=== PATIENT | male | born 1935 | race Caucasian/White ===

== ENCOUNTER → 2017-06-21 | Outpatient (CLI) | payer OTHER, MEDICARE ==
[~2017-06-21] MED LIST: ALEVE220 M1 PO; ALLEGRA ALLERG180 MG PO; ASPIR 8181 MG PO; ATIVAN1 MG PO; AZOR 5-40 MG T1 EACH PO; HYDROCHLOROTHIA25 M2 PO; METOPROLOL SUCC50 MG PO; PINDOLOL10 MG PO; PINDOLOL5 MG PO; PREDNISONE 20 M20 MG PO; PRILOSEC20 MG PO; TRAVATAN Z5 ML OP
== END ==
LOC: RAD 09:21
DX: M25.562 Pain in left knee (principal); M25.561 Pain in right knee

== ENCOUNTER → 2017-07-05 | Outpatient (CLI) | payer OTHER, MEDICARE | LOC: ULTRA 14:13 | DX: M71.22 Synovial cyst of popliteal space [Baker], left knee (principal); M25.462 Effusion, left knee; R60.0 Localized edema ==

== ENCOUNTER → 2017-08-03 | Outpatient (CLI) | payer OTHER, MEDICARE ==
[~2017-08-03] VITALS: Ht 182.9 cm; Wt 99.8 kg
[~2017-08-03] MED LIST changes: +ALEVE220 MG PO; +ALPHAGAN P5 ML OPHTHALMIC; +AVAPRO300 MG PO; +ELIQUIS2.5 MG PO; +METAMUCIL1 EAC1 PO; +METOPROLOL SUCC25 M1 PO; +NITRO-DUR 0.1M0.1 M1 TOP; +NORVASC5 M1 PO; +PRILOSEC 20 MG20 MG PO; -PRILOSEC20 MG PO; +PROTONIX40 M1 PO; +QUALAQUIN324 MG PO; +RANEXA500 MG PO; +SIMBRINZA 1%-0.28 ML INTRAOCULR; +TOPROL XL25 MG PO
--- NOTE | ~2017-08-03 | CATHLAB ---
[facility] [address] [place] [address] INVASIVE PROCEDURE REPORT Name: GIBRANRUBI NATHAN Room #: REG [facility]#: [id number] Admission: 08/03/17 Attend Phys: Bethel Small MD Discharge: Date of : 34 Date of Service: 08/03/17 1614 Report #: [id number] THIS REPORT FOR: //name// ADDENDUM APPROVED REPORT Patient Details Patient Status: Out-Patient Room #: The patient is a 82 year-old male Event Personnel Bethel Small Bill Distributor, Ruby Montgomery, Zeenat Hudson Penny, Wes RN Procedures Performed Art Access - R femoral artery* 50271 Initial Mod Sed Same Phys/QHP Gr5y 384791 67932 Mod Sed Same Phys/QHP Ea 413951 Coronaries Angiography and Bypass Grafts 948586 CORCABG Hemostasis with Manual pressure Indication Atrial fibrillation, Dyspnea, Chest pain Risk Factors Peripheral Vascular Disease, Hypercholesterolemia, Coronary Artery DiseaseHypertensionRenal Failure Previous Procedures/Diagnoses Previous CABG Procedure Narrative The patient was brought electively to the Cardiac Catheterization Laboratory and was prepped and draped in a sterile manner. The Right Groin^ was infiltrated with 1% Lidocaine subcutaneous anesthesia. A PINNACLE 4FR Sheath #[id number] sheath was inserted into the RFA^. Coronary angiography was performed using coronary diagnostic catheters. The right coronary system was accessed and visualized with a JR 4 catheter. The left coronary system was accessed and visualized with a JL 4 catheter. Hemostasis was obtained with manual pressure following sheath removal without any complications. The patient tolerated the procedure well and there were no complications associated with the procedure. There was no hematoma. Intraoperative Conscious Sedation Sedation start time: 12:41 Case end Time: 13:[address] [address] INVASIVE PROCEDURE REPORT Name: RUBI LEARY Room #: REG [facility]#: [id number] Admission: 08/03/17 Attend Phys: Bethel Small MD Discharge: Date of : 34 Date of Service: 08/03/17 1614 Report #: [id number] Fentanyl 50.0 mcg Versed 1.5 mg Fluoro Time: 10.06 minutes Dose: DAP 24493.90 cGycm2 1121 mGy Contrast Type and Amount: Visipaque 100 ml Coronary Angiography The patient's coronary anatomy is right dominant. [place] Artery Percent Stenosis Left Main: 100 % Prox LAD: % Mid/Distal LAD: % Circumflex: % RCA: 100 % Ramus: % Diagnostic Cath LAD There is a patent BOOGIE graft with an end to side anastomosis to the mid LAD. There are no flow-limiting lesions within the graft or LAD after the anastomosis. Diagonal 1 There is a patent sequential SVG with a cgll-yl-tmiq anastomosis to the first diagonal artery and end-to-side anastomosis to the first obtuse marginal artery. There are no flow-limiting lesions. R PDA There is a saphenous vein graft with an end to side anastomosis to the PDA. At the distal anastomotic site, there appears to be a 50-70% stenosis in the PDA. Recommend medical therapy. RPLV The RPL branch is filled via collateral circulation from the left circumflex artery. Left Ventriculography Left Ventriculography was not performed. Hemodynamics The aortic pressure is 119/73 mmHg with a mean of 85 mmHg. Conclusion 1. Occluded left main and RCA. 2. Patent BOOGIE to the mid LAD. 3. Patent sequential SVG to the first diagonal artery and the first obtuse marginal artery. 4. 50-70% stenosis at the distal anastomotic site of the SVG to the PDA. Recommend medical therapy. Consider staged angioplasty if symptoms persist. [facility] [address] [place] [address] INVASIVE PROCEDURE REPORT Name: RUBI LEARY Room #: REG CL [facility]#: [id number] Admission: 08/03/17 Attend Phys: Bethel Small MD Discharge: Date of : 34 Date of Service: 08/03/17 1614 Report #: [id number] 5. The RPL branch is filled via collateral circulation from the left circumflex artery. <ELECTRONICALLY SIGNED> By: Bethel Small MD 08/03/17 1614 1614 1614 Bethel Small MD /INF
--- NOTE | ~2017-08-03 | EKG ---
[address] [address] ELECTROCARDIOGRAM REPORT Name: RUBI LEARY [id number] Admission: 08/03/17 Attend Phys: Bethel Small MD Discharge: Date of : 34 Report #: [id number] THIS REPORT FOR: //name// [facility] Test Date: 2017-08-03 Test Time: 09:56:44 Pat Name: RUBI LEARY Department: Room: Gender: Recreation Facility Manager: Ryan VAN : 1935 Requested By: Bethel Small Order Number: [id number] MD: Rene Moy Measurements Intervals [place] Rate: 66 P: GA: QRS: -73 QRSD: 153 T: 94 QT: 430 QTc: 451 Interpretive Statements Atrial fibrillation Nonspecific IVCD with LAD Compared to ECG 10/09/2013 09:02:22 Electronically Signed On 08-03-2017 11:26:54 TITLE ABSTRACTOR by Rene Moy [email or web address] <ELECTRONICALLY SIGNED> By: Rene Moy MD 08/03/17 1126 0956 09 Rene Moy MD /SAE
[2017-08-03 10:07] VITALS: BP 111/72
[2017-08-03 10:18] LABS: HEMATOCRIT 36.7 % (42.0-52.0); HEMOGLOBIN 12.6 gm/dL (14.0-18.0); MCH 30.2 pg (26.0-34.0); MCHC 34.4 g/dL (28.0-37.0); MCV 87.7 fL (80.0-100.0); RBC 4.19 mil/uL (4.50-6.00); RDW 14.6 % (10.5-14.5); WBC 9.5 thou/uL (4.0-11.0)
[2017-08-03 10:26] LABS: CALCIUM 9.2 mg/dL (8.5-10.1); CREATININE 1.9 mg/dL (0.7-1.3); POTASSIUM 4.1 mmol/L (3.5-5.1)
== END ==
LOC: CATH 09:30
PROVIDERS: Internal Medicine Cardiovascular Disease
DX: I25.10 Atherosclerotic heart disease of native coronary artery without angina pectoris (principal); I11.0 Hypertensive heart disease with heart failure; I25.2 Old myocardial infarction; E78.00 Pure hypercholesterolemia, unspecified; K21.9 Gastro-esophageal reflux disease without esophagitis; Z87.891 Personal history of nicotine dependence; Z95.5 Presence of coronary angioplasty implant and graft; Z90.49 Acquired absence of other specified parts of digestive tract; Z95.0 Presence of cardiac pacemaker; Z98.890 Other specified postprocedural states; Z79.899 Other long term (current) drug therapy; Z79.82 Long term (current) use of aspirin; Z91.041 Radiographic dye allergy status

== ENCOUNTER 2018-01-30 07:34 | Inpatient (IN) | payer OTHER, MEDICARE ==
[~2018-01-30] VITALS: Ht 182.9 cm; Wt 97.1 kg
--- NOTE | ~2018-01-30 | P ---
[facility] [place] [address] [place] [address] PROCEDURE REPORT Name: MELANYJASONRUBI VENITA Room #: 201-P [facility] IN M.R.#: [id number] Admission: 01/30/18 Attend Phys: Chin Lopez MD Discharge: 01/31/18 Date of : 34 Report #: [id number] THIS REPORT FOR: //name// CC: Chin Mckenzie MD DATE OF SERVICE: 01/30/2018 PROCEDURE PERFORMED: Upper endoscopy. HISTORY OF PRESENT ILLNESS: The patient is an 82-year-old male with recent dark stools. He has been on Eliquis, Aleve and aspirin on a daily basis for history of atrial fibrillation, coronary artery disease and previous CABG. He also has gastroesophageal reflux disease, takes omeprazole 20 b.i.d. and has been complaining of dysphagia for the last few weeks as well. Hemoglobin is 10.6. Plan is for EGD. DESCRIPTION OF PROCEDURE: The risks and benefits of the procedure were explained to the patient, those risks including but not limited to bleeding, perforation, the risk of sedation. He understood these risks and gave informed consent. Sedation was given using propofol per Anesthesia. Next, using a standard Olympus upper endoscope, the scope was placed in the patient's mouth and advanced under direct vision through the esophagus, stomach and into the second portion of the duodenum. The larynx was normal in appearance. The upper esophagus was normal; however, in the mid esophagus there were several linear ulcerations, none of which were bleeding. There was also just distal to the ulcerations extrinsic compression. This may be secondary from the aorta or vertebra. This may be causing a pill esophagitis in this area. I was able to pass the scope through this area. I was not able to dilate today, however, due to his recent anticoagulation medications. His distal esophagus was normal. No evidence of esophagitis at the GE junction. Overall, the gastric mucosa was normal in the fundus and body; however, in the antrum, there was a moderate gastritis. No evidence of bleeding, no ulcerations. The pylorus was normal and patent. The duodenal bulb and first portion were normal. In the second portion, a single small 2 mm nonbleeding AVM was noted. I was not able to cauterize this today because of his recent Eliquis and aspirin again. Again, there was no evidence of active bleeding throughout the exam today. At this point, the scope was then withdrawn and the procedure terminated. The patient tolerated the procedure well. IMPRESSION: 1. Linear ulcerations in the mid esophagus, this may be secondary to pill-induced esophagitis as there was external compression in this area. 2. Gastritis. [facility] [address] [place] [address] PROCEDURE REPORT Name: RUBI LEARY Room #: 201-P DIS IN M.R.#: [id number] Admission: 01/30/18 Attend Phys: Chin Lopez MD Discharge: 01/31/18 Date of : 34 Report #: [id number] 3. 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 No evidence of bleeding throughout the exam today. RECOMMENDATIONS: 1. Continue to hold anticoagulation therapy as well as NSAIDs. 2. Continue to monitor hemoglobin closely. 3. Continue PPI therapy. 4. We will add liquid Carafate at this time. 5. We will likely proceed with an upper GI barium swallow to see if there is any obvious compression in the mid esophagus with swallowing. Thank you for allowing me to participate in his care. <ELECTRONICALLY SIGNED> By: Torsten Gonsales MD 02/02/18 0830 1411 1855 Torsten Gonsales MD /nt
[~2018-01-30 07:34] MED LIST changes: -METOPROLOL SUCC25 M1 PO; -PROTONIX40 M1 PO
[2018-01-30 07:38] VITALS: BP 123/57
[2018-01-30 08:09] LABS: BASOPHILS 1.3 % (0.0-2.0); EOSINOPHILS 5.9 % (0.0-3.0); HEMATOCRIT 30.2 % (42.0-52.0); HEMOGLOBIN 10.6 gm/dL (14.0-18.0); LYMPHOCYTES 10.7 % (24.0-44.0); MCH 29.4 pg (26.0-34.0); MCHC 35.1 g/dL (28.0-37.0); MCV 83.7 fL (80.0-100.0); MONOCYTES 11.7 % (1.0-8.0); PLATELET COUNT 207 thou/uL (150-400); POLYS 70.4 % (36.0-66.0); RBC 3.61 mil/uL (4.50-6.00); RDW 15.1 % (10.5-14.5); WBC 8.5 thou/uL (4.0-11.0)
[2018-01-30 08:17] LABS: CALCIUM 8.5 mg/dL (8.5-10.1); CREATININE 2.3 mg/dL (0.7-1.3)
[2018-01-30 08:24] LABS: ALBUMIN 3.6 g/dL (3.4-5.0); DIRECT BILIRUBIN 0.1 mg/dL (<0.1-0.3); TOTAL BILIRUBIN 0.6 mg/dL (<0.1-1.0)
[2018-01-30 09:33] LABS: URINE BILIRUBIN NEGATIVE (Negative); URINE BLOOD NEGATIVE (Negative); URINE CLARITY CLEAR; URINE COLOR YELLOW; URINE GLUCOSE-RANDOM* NEGATIVE (Negative); URINE KETONES NEGATIVE (Negative); URINE LEUKOCYTES NEGATIVE (Negative); URINE NITRITE NEGATIVE (Negative); URINE PROTEIN (DIPSTICK) NEGATIVE (Negative); URINE UROBILINOGEN 0.2 E.U./dl (0.2-1.0)
[2018-01-30 10:45] VITALS: BP 123/57
[2018-01-30 10:58] VITALS: BP 123/57
[2018-01-30 11:16] VITALS: BP 141/74
[2018-01-30 15:24] VITALS: BP 139/70
[2018-01-30 19:08] VITALS: BP 144/63
[2018-01-31 04:08] LABS: ABSOLUTE NEUTROPHILS 5.5 thou/uL (1.4-8.2); BASOPHILS 0.9 % (0.0-2.0); EOSINOPHILS 5.5 % (0.0-3.0); HEMATOCRIT 28.6 % (42.0-52.0); HEMOGLOBIN 10.1 gm/dL (14.0-18.0); LYMPHOCYTES 13.9 % (24.0-44.0); MCHC 35.2 g/dL (28.0-37.0); MCV 82.5 fL (80.0-100.0); MONOCYTES 10.5 % (1.0-8.0); PLATELET COUNT 195 thou/uL (150-400); POLYS 69.2 % (36.0-66.0); RBC 3.46 mil/uL (4.50-6.00); RDW 15.1 % (10.5-14.5)
[2018-01-31 04:23] VITALS: BP 135/61
[2018-01-31 04:23] LABS: CALCIUM 8.2 mg/dL (8.5-10.1); CREATININE 1.7 mg/dL (0.7-1.3); MAGNESIUM 2.1 mg/dL (1.8-2.4)
[2018-01-31 07:15] VITALS: BP 124/74
[2018-01-31 11:08] VITALS: BP 142/61
[2018-01-31] MEDS ORDERED: RANEXA500 MG PO (14:08)
[2018-01-31] MEDS ORDERED: METOPROLOL SUCC25 M1 PO (14:08)
[2018-01-31] MEDS ORDERED: ASPIR 8181 MG PO (14:09)
[2018-01-31] MEDS ORDERED: PROTONIX40 M1 PO (14:10)
[2018-01-31 14:20] VITALS: BP 142/61
[2018-02-01 09:53] LABS: GLYCOHEMOGLOBIN (HGB A1C) 5.7 % (4.8-5.6)
== END 2018-01-31 15:15 | disposition home or self-care (01) | DRG 377 ==
LOC: ER 07:34 → EROBS 08:14 → 2N 08:14
PROVIDERS: Emergency Medicine; Nurse Practitioner
PROC: 0DJ08ZZ Inspection of Upper Intestinal Tract, Via Natural or Artificial Opening Endoscopic (ICD-10-PCS; principal; 2018-01-30)
DX: K92.2 Gastrointestinal hemorrhage, unspecified (principal); N17.0 Acute kidney failure with tubular necrosis; I48.92 Unspecified atrial flutter; K22.10 Ulcer of esophagus without bleeding; I12.9 Hypertensive chronic kidney disease with stage 1 through stage 4 chronic kidney disease, or unspecified chronic kidney disease; Z66 Do not resuscitate; K57.90 Diverticulosis of intestine, part unspecified, without perforation or abscess without bleeding; I25.10 Atherosclerotic heart disease of native coronary artery without angina pectoris; I48.91 Unspecified atrial fibrillation; K21.0 Gastro-esophageal reflux disease with esophagitis; K29.70 Gastritis, unspecified, without bleeding; K55.20 Angiodysplasia of colon without hemorrhage; M19.90 Unspecified osteoarthritis, unspecified site; N18.9 Chronic kidney disease, unspecified; E78.5 Hyperlipidemia, unspecified; Z95.1 Presence of aortocoronary bypass graft; Z87.891 Personal history of nicotine dependence; Z90.49 Acquired absence of other specified parts of digestive tract; Z79.01 Long term (current) use of anticoagulants; Z79.82 Long term (current) use of aspirin; Z79.899 Other long term (current) drug therapy; Z88.8 Allergy status to other drugs, medicaments and biological substances; Z91.041 Radiographic dye allergy status
CPT/HCPCS: 10081; 62110; 62900; 70005

== ENCOUNTER → 2018-02-08 | Outpatient (CLI) | payer OTHER, MEDICARE ==
[~2018-02-08] MED LIST changes: +METOPROLOL SUCC25 M1 PO; +PROTONIX40 M1 PO
== END ==
LOC: RAD 08:31
DX: K20.9 Esophagitis, unspecified (principal); K92.2 Gastrointestinal hemorrhage, unspecified

== ENCOUNTER → 2018-03-26 | Outpatient (CLI) | payer OTHER, MEDICARE | LOC: RAD 11:02 | DX: I51.7 Cardiomegaly (principal); I25.10 Atherosclerotic heart disease of native coronary artery without angina pectoris; J98.4 Other disorders of lung; J98.11 Atelectasis ==

== ENCOUNTER 2018-09-22 11:13 | Emergency (ER) | payer OTHER, MEDICARE ==
[~2018-09-22] VITALS: Ht 188 cm; Wt 90.7 kg
[2018-09-22 12:30] LABS: CREATININE 1.6 mg/dL (0.7-1.3); HEMATOCRIT 35.4 % (42.0-52.0); HEMOGLOBIN 11.6 gm/dL (14.0-18.0); MCH 25.3 pg (26.0-34.0); MCHC 32.6 g/dL (28.0-37.0); MCV 77.7 fL (80.0-100.0); PLATELET COUNT 192 thou/uL (150-400); POTASSIUM 3.2 mmol/L (3.5-5.1); RBC 4.56 mil/uL (4.50-6.00); RDW 18.2 % (10.5-14.5)
[2018-09-22 12:35] LABS: ALBUMIN 3.4 g/dL (3.4-5.0); DIRECT BILIRUBIN 0.2 mg/dL (<0.1-0.3); TOTAL BILIRUBIN 0.9 mg/dL (<0.1-1.0); TOTAL PROTEIN 6.8 g/dL (6.4-8.2)
--- NOTE | 2018-09-22 12:55 | EKG ---
[place] [address] [address] [place] [address] ELECTROCARDIOGRAM REPORT Name: RUBI LEARY [facility] #: [facility] [id number] ������������������ Admission: 09/22/18 ������������������ Attend Phys: Discharge: ������������������ Date of : 34 Report #: [id number] ����������������������������������������������������������������� [id number] THIS REPORT FOR: //name// [facility] Test Date: 2018-09-22 Test Time: 11:41:26 Pat Name: RUBI LEARY Department: Room: Gender: M Polyethylene Combiner: TIFFANIE : 1935 Requested By: Earnest Butcher Order Number: [id number] MD: Getachew Kingston Measurements Intervals [place] Rate: 61 P: NM: QRS: -75 QRSD: 157 T: 88 QT: 441 QTc: 445 Interpretive Statements Atrial fibrillation Leftward axis Nonspecific intraventricular conduction delay Possible inferior infarct, old Compared to ECG 08/03/2017 09:56:44 No significant change was found Electronically Signed On 09-22-2018 12:55:17 MECHANICAL SHOVEL OPERATOR by Getachew Kingston [email or web address] ��������������������������������������������� <ELECTRONICALLY SIGNED> ���������������������������������������� By: Getachew Kingston MD, [facility] ��������������������������������������������� 09/22/18 1255 1141 1141 Getachew Kingston MD, FACC /EPI
[2018-09-22 13:02] LABS: ABSOLUTE NEUTROPHILS 6.3 thou/uL (1.4-8.2)
[2018-09-22 13:03] LABS: ANISOCYTOSIS 2+; OVALOCYTES 1+
[2018-09-22 13:30] LABS: URINE BILIRUBIN NEGATIVE (Negative); URINE BLOOD NEGATIVE (Negative); URINE CLARITY CLEAR; URINE COLOR YELLOW; URINE GLUCOSE-RANDOM* NEGATIVE (Negative); URINE KETONES NEGATIVE (Negative); URINE LEUKOCYTES-REFLEX NEGATIVE (Negative); URINE NITRITE-REFLEX NEGATIVE (Negative); URINE PROTEIN (DIPSTICK) TRACE (Negative); URINE SPECIFIC GRAVITY 1.025 (1.005-1.035); URINE UROBILINOGEN 0.2 E.U./dl (0.2-1.0)
[2018-09-22 13:39] VITALS: BP 139/78
[2018-09-22] MEDS ORDERED: NORFLEX100 MG PO (13:41)
== END 2018-09-22 14:10 | disposition home or self-care (01) ==
LOC: ER 11:13
PROVIDERS: Emergency Medicine
DX: S39.012A Strain of muscle, fascia and tendon of lower back, initial encounter (principal); M54.2 Cervicalgia; E87.6 Hypokalemia; K21.9 Gastro-esophageal reflux disease without esophagitis; I10 Essential (primary) hypertension; I25.10 Atherosclerotic heart disease of native coronary artery without angina pectoris; I48.91 Unspecified atrial fibrillation; Z87.891 Personal history of nicotine dependence; Z91.041 Radiographic dye allergy status; Z88.8 Allergy status to other drugs, medicaments and biological substances; Z90.89 Acquired absence of other organs; Z90.49 Acquired absence of other specified parts of digestive tract; Z98.890 Other specified postprocedural states; X50.1XXA Overexertion from prolonged static or awkward postures, initial encounter; Y92.89 Other specified places as the place of occurrence of the external cause; Y93.89 Activity, other specified; Y99.8 Other external cause status

== ENCOUNTER → 2019-05-17 | Outpatient (CLI) | payer OTHER, MEDICARE ==
[~2019-05-17] MED LIST changes: +MICROZIDE12.5 MG PO; +NEURONTIN 300M300 M2 PO; +NORFLEX100 MG PO; +OMEPRAZOLE 20 M20 M1 PO
== END ==
LOC: HYPER 05:48
DX: M79.89 Other specified soft tissue disorders (principal); I89.0 Lymphedema, not elsewhere classified; R60.0 Localized edema; E11.22 Type 2 diabetes mellitus with diabetic chronic kidney disease; I12.9 Hypertensive chronic kidney disease with stage 1 through stage 4 chronic kidney disease, or unspecified chronic kidney disease; N18.2 Chronic kidney disease, stage 2 (mild); E11.42 Type 2 diabetes mellitus with diabetic polyneuropathy; E11.51 Type 2 diabetes mellitus with diabetic peripheral angiopathy without gangrene; E11.21 Type 2 diabetes mellitus with diabetic nephropathy; E78.00 Pure hypercholesterolemia, unspecified; G90.09 Other idiopathic peripheral autonomic neuropathy; I73.00 Raynaud's syndrome without gangrene; I48.20 Chronic atrial fibrillation, unspecified; Z87.891 Personal history of nicotine dependence; Z95.1 Presence of aortocoronary bypass graft; Z90.49 Acquired absence of other specified parts of digestive tract

== ENCOUNTER → 2019-05-30 | Outpatient (CLI) | payer OTHER, MEDICARE | LOC: HYPER 03:57 | DX: M79.661 Pain in right lower leg (principal); E11.22 Type 2 diabetes mellitus with diabetic chronic kidney disease; I12.9 Hypertensive chronic kidney disease with stage 1 through stage 4 chronic kidney disease, or unspecified chronic kidney disease; N18.2 Chronic kidney disease, stage 2 (mild); E11.21 Type 2 diabetes mellitus with diabetic nephropathy; E78.00 Pure hypercholesterolemia, unspecified; E11.42 Type 2 diabetes mellitus with diabetic polyneuropathy; I73.89 Other specified peripheral vascular diseases; I73.00 Raynaud's syndrome without gangrene; I48.20 Chronic atrial fibrillation, unspecified; I89.0 Lymphedema, not elsewhere classified; G90.09 Other idiopathic peripheral autonomic neuropathy; R60.0 Localized edema; Z87.891 Personal history of nicotine dependence ==

== ENCOUNTER → 2019-06-10 | Outpatient (CLI) | payer OTHER, MEDICARE ==
[~2019-06-10] VITALS: Ht 182.9 cm; Wt 87.1 kg
[2019-06-10 07:25] VITALS: BP 131/68
[2019-06-10 07:38] LABS: HEMATOCRIT 33.2 % (42.0-52.0); HEMOGLOBIN 10.2 gm/dL (14.0-18.0); MCHC 30.8 g/dL (28.0-37.0); MCV 84.6 fL (80.0-100.0); RBC 3.92 mil/uL (4.50-6.00); RDW 19.4 % (10.5-14.5); WBC 9.1 thou/uL (4.0-11.0)
[2019-06-10 07:46] LABS: CALCIUM 9.3 mg/dL (8.5-10.1); CREATININE 2.1 mg/dL (0.7-1.3); POTASSIUM 3.9 mmol/L (3.5-5.1)
--- NOTE | 2019-06-10 14:23 | CATHLAB ---
[facility] [address] [place] [address] INVASIVE PROCEDURE REPORT Name: GIBRANRUBI NATHAN Room #: REG [facility]#: [id number] Admission: 06/10/19 Attend Phys: Bethel Small MD Discharge: Date of : 34 Report #: [id number] THIS REPORT FOR: //name// APPROVED REPORT Study performed: 06/10/2019 10:47:55 Patient Details Patient Status: Out-Patient Room #: The patient is a 84 year-old male Event Personnel Bethel Small Pool Lifeguard, Jo Cain RN, Gosia Schroeder RN RN, Ruby Montgomery, Charleen Moore RTR Scrub, Bobby Quan RTR Scrub Procedures Performed Art Access - R femoral artery* Art Access - L radial artery 15679 Initial Mod Sed Same Phys/QHP Gr5y 155333 41665 Mod Sed Same Phys/QHP Ea 545099 Coronaries Angiography and Bypass Grafts 741853 CORCABG Hemostasis with Manual pressure Indication Dyspnea, Positive stress test Risk Factors Hypercholesterolemia, Coronary Artery DiseaseHypertension, Last Creatanine Previous Procedures/Diagnoses Previous CABG Procedure Narrative The patient was brought electively to the Cardiac Catheterization Laboratory and was prepped and draped in a sterile manner. The Left Wrist^ was infiltrated with 1% Lidocaine subcutaneous anesthesia. A BRITE TIP 6FR X 23CM Sheath #[id number] sheath was inserted into the RFA^. Coronary angiography was performed using coronary diagnostic catheters. Pre-demployment femoral angiogram was performed . Hemostasis was obtained with manual pressure following sheath removal without any complications. The patient tolerated the procedure well and there were no complications associated with the procedure. There was no hematoma. Initially, a left radial artery access was attempted. A sheath was placed in the left radial artery via a modified Seldinger technique. However, there is a loop in the [address] [address] INVASIVE PROCEDURE REPORT Name: RUBI LEARY Room #: REG [facility]#: [id number] Admission: 06/10/19 Attend Phys: Bethel Small MD Discharge: Date of : 34 Report #: [id number] brachial artery and the case was terminated. The procedure was performed via the right femoral artery access. There is excessive tortuosity in the right femoral/iliac arteries, a long 6 Kyrgyz sheath was placed. Intraoperative Conscious Sedation Sedation start time: 11:08 Case end Time: 12:13 Fentanyl 100 mcg Versed 1 mg Fluoro Time: 13.00 minutes Dose: DAP 12703.00 cGycm2 989 mGy Contrast Type and Amount: Visipaque 75 ml Coronary Angiography The patient's coronary anatomy is right dominant. Diagnostic Cath Left Main Known to be chronically occluded from previous catheterizations. LAD There is a nonselective injection of the bypass graft, revealing a patent BOOGIE with an end-to-side anastomosis to the mid LAD. There does not appear to be any significant obstruction within the [place] LAD after the anastomosis. Circumflex There is a patent sequential SVG with the side to side anastomosis to the first diagonal artery and then an end-to-side anastomosis to the first OM branch. Right Coronary There is a patent SVG to the PDA. After the anastomosis, there is mild to moderate diffuse disease in the proximal PDA segment. RPLV This vessel is filled via collateral circulation from the first OM. Left Ventriculography Left Ventriculography was not performed. Hemodynamics The aortic pressure is 160/93 mmHg with a mean of 111 mmHg. Conclusion 1. There is a patent BOOGIE graft to the LAD. 2. There is a patent sequential SVG to the first diagonal artery and the first obtuse marginal artery. 3. There is a patent SVG to the PDA. 4. There is collateral filling of the right posterior lateral [facility] [address] [place] [address] INVASIVE PROCEDURE REPORT Name: GIBRANRUBI HOUR Room #: REG [facility]#: [id number] Admission: 06/10/19 Attend Phys: Bethel Small MD Discharge: Date of : 34 Report #: [id number] branches. 5. Recommend aggressive risk factor management. <ELECTRONICALLY SIGNED> By: Bethel Small MD 06/10/19 142 142 142 Bethel Small MD /DOM
--- NOTE | 2019-06-11 19:03 | EKG ---
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: Ryan VAN : 1935 Requested By: Bethel Small Order Number: [id number] MD: Getachew Kingston Measurements Intervals [place] Rate: 63 P: [place]: QRS: -79 QRSD: 160 T: 111 QT: 481 QTc: 493 Interpretive Statements Atrial fibrillation Left bundle branch block Compared to ECG 09/22/2018 11:41:26 No significant change was found Electronically Signed On 06-11-2019 19:03:37 FAMILY AND CONSUMER EDUCATION TEACHER by Getachew Kingston [email or web address] <ELECTRONICALLY SIGNED> By: Getachew Kingston MD, [facility] 06/11/19 1903 0730 9 Getachew Kingston MD, FACC /EPI
== END | disposition home or self-care (01) ==
LOC: CATH 06:53
PROVIDERS: Internal Medicine Cardiovascular Disease
DX: R94.39 Abnormal result of other cardiovascular function study (principal); I25.10 Atherosclerotic heart disease of native coronary artery without angina pectoris; I25.82 Chronic total occlusion of coronary artery; I10 Essential (primary) hypertension; E78.00 Pure hypercholesterolemia, unspecified; E78.5 Hyperlipidemia, unspecified; E11.9 Type 2 diabetes mellitus without complications; I48.91 Unspecified atrial fibrillation; I48.92 Unspecified atrial flutter; K21.9 Gastro-esophageal reflux disease without esophagitis; E66.09 Other obesity due to excess calories; D64.9 Anemia, unspecified; Z98.890 Other specified postprocedural states; Z79.4 Long term (current) use of insulin; Z95.1 Presence of aortocoronary bypass graft; Z79.899 Other long term (current) drug therapy; Z79.01 Long term (current) use of anticoagulants; Z90.49 Acquired absence of other specified parts of digestive tract; Z91.041 Radiographic dye allergy status

== ENCOUNTER → 2019-06-12 | Outpatient (CLI) | payer OTHER, MEDICARE | LOC: CAT 13:57 | DX: R91.8 Other nonspecific abnormal finding of lung field (principal); R94.2 Abnormal results of pulmonary function studies; R18.8 Other ascites; J84.9 Interstitial pulmonary disease, unspecified; Z91.041 Radiographic dye allergy status ==

== ENCOUNTER → 2019-06-21 | Outpatient (CLI) | payer OTHER, MEDICARE ==
[2019-06-21 12:34] LABS: BE(vivo) -2.3 mmol/L (-2 to +3); HCO3 21.1 mmol/L (22.0-26.0); PCO2 31.7 mmHg (35.0-45.0); PO2 70.6 mmHg (80.0-100.0); pH 7.442 (7.360-7.450)
== END ==
LOC: PUL 10:57
PROVIDERS: Internal Medicine Pulmonary Disease
DX: R06.00 Dyspnea, unspecified (principal); R94.2 Abnormal results of pulmonary function studies

== ENCOUNTER → 2019-08-23 | Outpatient (CLI) | payer OTHER, MEDICARE ==
[~2019-08-23] VITALS: Ht 182.9 cm; Wt 82.6 kg
[~2019-08-23] MED LIST changes: +ASPIR-LOW81 MG PO; +KLOR-CON 10 ER10 MEQ PO; +MULTI VITAMIN1 EACH PO; +SLOW FE142 MG PO; +TORSEMIDE20 MG PO
--- NOTE | 2019-08-26 14:46 | P ---
[facility] [place] [address] [place] [address] PROCEDURE REPORT Name: MELANYJASONRUBI NATHAN Room #: REG [facility] [id number] Admission: 08/23/19 Attend Phys: Torsten Mcqueen Discharge: Date of : 34 Report #: [id number] THIS REPORT FOR: //name// CC: Torsten Mckenzie MD DATE OF SERVICE: 08/23/2019 PROCEDURE PERFORMED: Upper endoscopy with esophageal dilation. HISTORY OF PRESENT ILLNESS: The patient is an 84-year-old male, complains of dysphagia. He said this had been worse for the last 2-3 months. He does have regurgitation at times. This is to both solids and liquids. He underwent an upper endoscopy by myself on 01/30/2018. At that time, he presented with dark stools. He was on Eliquis, Aleve, and aspirin at that time for history of AFib, coronary artery disease and previous CABG. He does take omeprazole 20 mg b.i.d., which he has been on for many years. He also was complaining of dysphagia at that time as well. Upper endoscopy showed several linear ulcerations in the mid esophagus, nonbleeding. There is also a mild extrinsic compression, likely from the aorta or vertebra noted at that time, suspected possibly pill esophagitis in this area. I was unable to dilate at that time due to his blood thinners. He has now been off these his anticoagulation. We did proceed with an upper GI on 02/08/2018, which was normal. No evidence of strictures or extrinsic mass effect was seen. DESCRIPTION OF PROCEDURE: The risks and benefits of the procedure were explained to the patient, those risks including but not limited to bleeding, perforation and the risk of sedation. He understood these risks and gave me informed consent. Sedation was given using propofol per anesthesia. Next, using a standard Olympus upper endoscope, the scope was placed in the patient's mouth and advanced under direct vision through the esophagus, stomach and into the second portion of the duodenum. The larynx was normal in appearance. Again, there appears to be mild extrinsic compression in the mid esophagus. Again, likely secondary to the aorta; however, the scope did pass through this area and there was no evidence of erosions or esophagitis at this time. No strictures were noted. The esophagus was mildly tortuous. The GE junction was normal. Overall, the gastric mucosa was normal other than a few fundic gland type polyps. No evidence of erosions or ulcerations. The gastric antrum was normal. The pylorus was normal and patent. The duodenal bulb, first and second portion were all normal. The scope was then brought back up into the patient's stomach and a Savary guidewire was inserted through the scope, leaving the guidewire in place as the scope was then withdrawn. Next, a 48-Guyanese followed by a 51-Guyanese Savary dilation was performed, checking the esophagus each time to make sure there was no mucosal tear, which there was not. After a 51-Guyanese was removed, the scope was reintroduced into the patient's esophagus. Once [address] [address] PROCEDURE REPORT Name: RUBI LEARY Room #: REG [facility] Herman#: [id number] Admission: 08/23/19 Attend Phys: Amish C. McElhinne Discharge: Date of : 34 Report #: [id number] again, no evidence of mucosal tear after dilation. At this point, the scope was then withdrawn and the procedure terminated. The patient tolerated the procedure well. IMPRESSION: 1. Mild extrinsic appearing compression, likely due to the aorta in the mid esophagus again noted. This is similar in appearance to 2018. No evidence of stricture or esophagitis was seen. 2. Otherwise, normal upper endoscopy. RECOMMENDATIONS: 1. Observe the patient post-dilation. 2. If there is no benefit, may need to consider a dysmotility and consider esophageal manometry at that point. Thank you for allowing me to participate in his care. <ELECTRONICALLY SIGNED> By: Torsten Gonsales MD 08/26/19 1446 0950 1347 Torsten Gonsales MD /nt
== END | disposition home or self-care (01) ==
LOC: GI 08:27
DX: R13.19 Other dysphagia (principal); K22.8 Other specified diseases of esophagus; K21.9 Gastro-esophageal reflux disease without esophagitis; I10 Essential (primary) hypertension; I48.91 Unspecified atrial fibrillation; I25.10 Atherosclerotic heart disease of native coronary artery without angina pectoris; D64.9 Anemia, unspecified; E78.5 Hyperlipidemia, unspecified; Z98.890 Other specified postprocedural states; Z79.899 Other long term (current) drug therapy; Z98.41 Cataract extraction status, right eye; Z90.49 Acquired absence of other specified parts of digestive tract; Z95.1 Presence of aortocoronary bypass graft; Z87.891 Personal history of nicotine dependence; Z91.041 Radiographic dye allergy status; Z88.8 Allergy status to other drugs, medicaments and biological substances; Z79.82 Long term (current) use of aspirin
CPT/HCPCS: 62110; 62900

== ENCOUNTER → 2019-08-27 | Outpatient (CLI) | payer OTHER, MEDICARE | LOC: SJCVC 10:15 | DX: I45.10 Unspecified right bundle-branch block (principal); I48.91 Unspecified atrial fibrillation; R94.31 Abnormal electrocardiogram [ECG] [EKG]; I25.812 Atherosclerosis of bypass graft of coronary artery of transplanted heart without angina pectoris; I11.0 Hypertensive heart disease with heart failure; I50.32 Chronic diastolic (congestive) heart failure; Z95.1 Presence of aortocoronary bypass graft; Z87.891 Personal history of nicotine dependence; Z72.89 Other problems related to lifestyle ==

== ENCOUNTER 2019-12-09 12:22 | Inpatient (IN) | payer OTHER, MEDICARE ==
[~2019-12-09] VITALS: Ht 182.9 cm; Wt 97.5 kg
--- NOTE | ~2019-12-09 | HC ---
[facility] [place] [place] [address] CONSULTATION Name: GIBRANRUBI NATHAN Room #: 360-P ADM IN M.R.#: [id number] Admission: 12/09/19 Attend Phys: Christos Gibson MD Discharge: Date of : 34 Report #: [id number] THIS REPORT FOR: cc: Chris Mckenzie MD, Rene P. MD Al-Tanner Quintanilla MD ~ CC: Bethel Mckenzie DATE OF SERVICE: 12/10/2019 REASON FOR CONSULTATION: Elevated creatinine. REASON FOR PRESENTATION: Shortness of breath. HISTORY OF PRESENT ILLNESS: This is an 84-year-old with past medical history of CABG x 2. He is also known to have chronic kidney disease. His baseline creatinine based on his trends in the last few years has been anywhere from 1.6 to 2.1 as of 05/2019. He presented yesterday reporting that he has been having some issues with shortness of breath. He also reported some bilateral lower extremity swelling and scrotal swelling. He was instructed to take torsemide by his Cardiology. He felt that there was no improvement in his symptoms and decided to come for further evaluation and management. He was found to have a creatinine of 2.5 on presentation. He was admitted, being ruled out for COVID-19. I was consulted to manage his chronic kidney disease. PAST MEDICAL HISTORY: 1. CABG. 2. Coronary artery disease. 3. Hypertension. 4. Atrial fibrillation/flutter. 5. Remote history of laparoscopic cholecystectomy. 6. Tonsillectomy. MEDICATIONS: 1. Flomax. 2. Omeprazole. 3. Metoprolol. 4. Torsemide. 5. Ferrous sulfate. ALLERGIES: IODINE. SOCIAL HISTORY: Ex-smoker. Denies drug or alcohol use. [facility] [address] [place] [address] CONSULTATION Name: RUBI LEARY Room #: 360-P [facility] IN ..#: [id number] Admission: 12/09/19 Attend Phys: Christos Gibosn MD Discharge: Date of : 34 Report #: [id number] REVIEW OF SYSTEMS: GENERAL: Significant for weakness. CARDIOVASCULAR: As per the history of present illness. PULMONARY: No cough or hemoptysis. GASTROINTESTINAL: No nausea or vomiting. GENITOURINARY: No frequency, no urgency. FAMILY HISTORY: Significant for hypertension. PHYSICAL EXAMINATION: GENERAL: He is awake, alert, oriented. Blood pressure is 117/59, temperature is 37.7. HEAD AND NECK: No jugular venous distention. CHEST: Minimal bibasilar crackles. CARDIOVASCULAR: No rub detected. ABDOMEN: Soft, nontender. EXTREMITIES: Lower extremities, no edema. GENITALIA: I see no scrotal swelling. LABORATORY DATA: Hemoglobin is 9.4. Sodium is 139, potassium is 3.5, BUN is 47, creatinine is 2.5. ASSESSMENT AND PLAN: 1. Chronic kidney disease with a baseline creatinine of around 2.0. 2. Hypertension. 3. Atrial fibrillation/flutter. 4. Edema. 5. The patient's creatinine is slightly above his baseline. This is related to diuresis. 6. Discontinue IV Lasix. 7. Basic workup for his rising creatinine. 8. Switch to oral torsemide. 9. Avoid nephrotoxins. 10. Follow daily electrolytes. 11. Salt restriction. 12. Daily body weight. 13. We will continue to follow. By: 0632 0706 Tanner Solis MD /nt
[2019-12-09 12:38] VITALS: BP 106/57
[2019-12-09 13:07] LABS: HEMATOCRIT 29.9 % (42.0-52.0); HEMOGLOBIN 9.4 gm/dL (14.0-18.0); MCH 23.3 pg (26.0-34.0); MCHC 31.4 g/dL (28.0-37.0); MCV 74.2 fL (80.0-100.0); PLATELET COUNT 175 thou/uL (150-400); RBC 4.03 mil/uL (4.50-6.00); RDW 19.8 % (10.5-14.5); WBC 6.2 thou/uL (4.0-11.0)
[2019-12-09 13:18] LABS: ANION GAP 11 mmol/L (7-16); BUN 47 mg/dL (7-18); CALCIUM 8.8 mg/dL (8.5-10.1); CHLORIDE 102 mmol/L (98-107); CO2 26 mmol/L (21-32); CREATININE 2.5 mg/dL (0.7-1.3); GLUCOSE 99 mg/dL (74-106); POTASSIUM 3.5 mmol/L (3.5-5.1); SODIUM 139 mmol/L (136-145)
[2019-12-09] MEDS ORDERED: FLOMAX0.4 MG PO (13:21)
[2019-12-09 13:29] LABS: ALBUMIN 3.4 g/dL (3.4-5.0); SGOT 25 U/L (15-37); SGPT 17 U/L (30-65); TOTAL BILIRUBIN 0.8 mg/dL (<0.1-1.0); TOTAL PROTEIN 7.5 g/dL (6.4-8.2); TROPONIN-I <0.06 ng/mL (<0.06)
[2019-12-09 13:35] LABS: ABSOLUTE NEUTROPHILS 4.7 thou/uL (1.4-8.2); ANISOCYTOSIS 2+; MICROCYTES 1+
[2019-12-09 13:36] LABS: HYPOCHROMASIA 1+; OVALOCYTES FEW; POLYCHROMASIA OCCASIONAL
[2019-12-09 13:51] VITALS: BP 128/71
[2019-12-09 14:03] LABS: URINE BILIRUBIN NEGATIVE (Negative); URINE BLOOD NEGATIVE (Negative); URINE CLARITY CLEAR; URINE COLOR YELLOW; URINE GLUCOSE-RANDOM* NEGATIVE (Negative); URINE KETONES NEGATIVE (Negative); URINE LEUKOCYTES-REFLEX NEGATIVE (Negative); URINE NITRITE-REFLEX NEGATIVE (Negative); URINE PROTEIN (DIPSTICK) NEGATIVE (Negative); URINE SPECIFIC GRAVITY 1.015 (1.005-1.035); URINE UROBILINOGEN 0.2 E.U./dl (0.2-1.0)
[2019-12-09 16:20] LABS: TSH 3.396 uIU/mL (0.358-3.740)
--- NOTE | 2019-12-09 16:21 | NUR ---
Dietary called to order dinner tray for patient
[2019-12-09 17:07] VITALS: BP 138/82
--- NOTE | 2019-12-09 17:31 | NUR ---
Pt provided with meal tray at this time. Head of bed elevated.
[2019-12-09 20:59] VITALS: BP 134/70
[2019-12-09 21:28] VITALS: BP 140/74
[2019-12-09] MEDS ORDERED: NEURONTIN 300M300 M2 PO (22:25)
--- NOTE | 2019-12-09 23:31 | NUR ---
ADMISSION NOTE: PT RESULTED COVID-19 NEGAIVE. HOWEVER, THE INSTRUCTIONS FROM MANAGEMENT IS TO PUT THIS PERSON INTO ISOLATION AND ORDER ISOLATION CART AND SPECIAL PRECAUTIONS TRAY. PT IS ALERT AND ORIENTED. DENIES SHORTNES OF BREATH AT THIS TIME. BP WITH IN LIMITS. HE HAS ALL BELONGINGS NEAR HIS BED AND HAS HIS PHONE AND CHARGING AT THIS TIME. CAREPLAN STARTED. COMPLAINS OF CHRONIC [AIN TO HIS BACK, TYLENOL GIVEN.
[2019-12-10 04:43] VITALS: BP 117/59
[2019-12-10] MEDS ORDERED: FLONASE 0.05%50 MCG NARES (05:09)
[2019-12-10 07:20] LABS: HEMATOCRIT 28.8 % (42.0-52.0); HEMOGLOBIN 9.2 gm/dL (14.0-18.0); MCH 23.4 pg (26.0-34.0); MCHC 31.9 g/dL (28.0-37.0); MCV 73.3 fL (80.0-100.0); PLATELET COUNT 180 thou/uL (150-400); RBC 3.93 mil/uL (4.50-6.00); RDW 19.7 % (10.5-14.5); WBC 10.5 thou/uL (4.0-11.0)
[2019-12-10 07:33] LABS: CALCIUM 8.9 mg/dL (8.5-10.1); CREATININE 2.5 mg/dL (0.7-1.3); MAGNESIUM 2.3 mg/dL (1.8-2.4); POTASSIUM 3.4 mmol/L (3.5-5.1)
[2019-12-10 07:40] VITALS: BP 119/67
--- NOTE | 2019-12-10 08:01 | EKG ---
[facility] [address] ELECTROCARDIOGRAM REPORT Name: RUBI LEARY Room #: 360-P ADM IN M.R.#: [id number] Admission: 12/09/19 Attend Phys: Christos Gibson MD Discharge: Date of : 33 Report #: [id number] THIS REPORT FOR: cc: Chris Mckenzie MD, Rene P. 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: SHAILESH : 1935 Requested By: Bibi Vang Order Number: [id number] MD: Getachew Kingston Measurements Intervals [place] Rate: 57 P: TN: QRS: -95 QRSD: 155 T: 102 QT: 489 QTc: 477 Interpretive Statements Atrial fibrillation Nonspecific intraventricular conduction delay Inferior infarct, old Anterior infarct, old Baseline wander in lead(s) V5 No previous ECGs available for comparison Electronically Signed On 12-10-2019 8:00:05 CDT by Getachew Kingston [email or web address] <ELECTRONICALLY SIGNED> By: Getachew Kingston MD, FAC 12/10/19 0800 1245 1245 Getachew Kingston MD, FAC /EPI
[2019-12-10 08:28] LABS: ABSOLUTE NEUTROPHILS 8.6 thou/uL (1.4-8.2); HYPOCHROMASIA 1+; LARGE PLATELETS OCCASIONAL; POIKILOCYTOSIS 1+
[2019-12-10 08:29] LABS: ANISOCYTOSIS 2+; MICROCYTES 1+; OVALOCYTES 1+
[2019-12-10 09:10] LABS: URINE CREATININE-RANDOM* 29.3 mg/dL
--- NOTE | 2019-12-10 10:36 | NUR ---
PT REFUSED TO BE RETESTED AGAIN FOR THE COVID, STATES HE HAS HAD THE COUGHFOR YEARS. EDUCATION REINFORCED, PATIENT CONTINUOS TO REFUSE.
--- NOTE | 2019-12-10 10:41 | NUR ---
0700 PT CARE ASSUMED AT 0700, PT ALERT AND ORIENTED X4, DENIES CHEST PAIN, NAUSEA AND VOMITING. SOB WITH EXERTION OR ACTIVITY, HAS A NON PRODUCTIVE COUGH. NO SIGNS OF DISTRESS NOTED. CALL LIGHT AND TABLE IN REACH, BED AT LOWEST LEVEL WITH ALARM ON.
[2019-12-10 12:30] VITALS: BP 115/67
[2019-12-10 16:26] VITALS: BP 118/73
--- NOTE | 2019-12-10 16:43 | NUR ---
INITIAL ASSESSMENT: Reviewed chart and spoke with nursing and attending physician. Pt was admitted from home due to CHF exacerbation. Pt in Enhanced Isolation to r/o COVID-19. First test is negative. Pt refusing second COVID-19. SW attempted to contact pt via phone. No answer in room. SW spoke with pt's via phone. Introduced role of SW. Pt is alert/orientated and lives at home with his . Prior to admission, pt was independent with ADL. Pt has been weak and fatigued over the past several weeks. There are steps inside the house that pt has to navigate and has been able to. Pt recently had a cpap delivered to his home and is trying to figure out to use it, as the DME is unable to do an in-home instruction. Pt is not on O2 at home. No hx of services or post-acute placement. Pt's PCP is Dr. Mckenzie. Therapy lidya ordered to assist with recommendations for discharge needs. [facility] is following to assist as needed with discharge planning.
[2019-12-10 19:42] VITALS: BP 121/64
[2019-12-11 03:40] VITALS: BP 121/61
--- NOTE | 2019-12-11 04:33 | NUR ---
RESTING QUIETLY TONIGHT . COMPLAINS OF SOME NECK PAIN AT THE BEGINGING OF THE SHIFT. ULTRAM EFECTIVE. AFEBRILE THIS SHIFT. CAREPLAN REVIEWED.
--- NOTE | 2019-12-11 04:34 | NUR ---
Covid -19 enhanced precautions,isolation continued. pt has been covid negative on 12/05/19 and 12/06/19 both negative. continues to have at least one temperature greater than 100.4 degrees F oral, daily.
--- NOTE | 2019-12-11 04:39 | NUR ---
Covid negative result, in ED prior to admission to the 3w covid unit. 12/10/19 second Covid test result negative. Dr. Rascon and Infection control nurse continue to keep this person in enhanced precuations due to chronic cough. pt was admitted for his exacerbation of CHF. pt states that he has cough in this maner for years.
[2019-12-11 06:36] LABS: HEMOGLOBIN 9.6 gm/dL (14.0-18.0); MCHC 31.1 g/dL (28.0-37.0); RBC 4.19 mil/uL (4.50-6.00); RDW 19.7 % (10.5-14.5)
[2019-12-11 06:54] LABS: ALBUMIN 3.3 g/dL (3.4-5.0); CALCIUM 8.7 mg/dL (8.5-10.1); CREATININE 2.3 mg/dL (0.7-1.3); PHOSPHORUS 3.3 mg/dL (2.5-4.9); POTASSIUM 3.6 mmol/L (3.5-5.1)
[2019-12-11 07:35] VITALS: BP 115/58
--- NOTE | 2019-12-11 09:50 | NUR ---
PT CARE ASSUMED 0700, PT ALERT AND ORIENTED X4, DENIES ANY CHEST PAIN, NAUSEA AND VOMITING. PT STATES BEING SOB AND OXYGEN MIGHT HELP. 1L OF NC PUT ON PT. FUNES CATHETER DISCONTINUED. PT IS UP IN CHAIR. CALL LIGHT AND TABLE IN REACH. WILL CONTINUE TO MONITOR.
--- NOTE | 2019-12-11 10:08 | NUR ---
12/08, 12/09 PT COVID NEGATIVE, PT AFEBRILE, CONTINUE TO HAVE A COUGH WHICH HE STATES HE HAS HAD IT FOR 5 YEARS 12/10 1000 JOSE ORTIZ ADVISED TO DISCONTINUED ENHANCED PRECAUTION.
--- NOTE | 2019-12-11 11:43 | 2DMMODE ---
[facility] [place] [address] 2 D/M-MODE ECHOCARDIOGRAM Name: RUBI LEARY Room #: 360-P ADM IN M.R.#: [id number] Admission: 12/09/19 Attend Phys: Christos Gibson MD Discharge: Date of : 33 Report #: [id number] THIS REPORT FOR: cc: Chris Mckenzie MD, Rene P. MD Park, Jin S. MD ~ APPROVED REPORT Study performed: 12/11/2019 10:15:06 EXAM: Comprehensive 2D, Doppler, and color-flow Echocardiogram Patient Location: Bedside Room #: 360 Status: routine BSA: 2.20 HR: 60 bpm BP: 115/58 mmHg Rhythm: Atrial Fibrillation Other Information Study Quality: Adequate Technically limited study due to pateint having difficulty breathing. Unable to position. Indications Elevated BNP, SOB, CHF, swelling. Hx: CABG x2, Afib, HTN, HLP, DM. 2D Dimensions RVDd: 49.32 mm IVSd: 10.96 (7-11mm) LVOT Diam: 22.09 (18-24mm) LVDd: 65.35 mm PWd: 9.91 (7-11mm) Ascending Ao: 31.97 (22-36mm) LVDs: 56.96 (25-40mm) Aortic Root: 37.11 mm Volumes Left Atrial Volume (Systole) Single Plane 4CH: 96.55 mL Single Plane 2CH: 96.76 mL LA ESV Index: 47.00 mL/m2 Aortic Valve AoV Peak Aamir.: 1.22 m/s AO Peak Gr.: 5.99 mmHg LVOT Max P.71 mmHg [facility] [address] [place] [address] 2 D/M-MODE ECHOCARDIOGRAM Name: RUBI LEARY VENITA [facility]: 360[facility]#: [id number] Admission: 12/09/19 Attend Phys: Christos Gibson, Discharge: Date of : 33 Report #: [id number] LVOT Max V: 0.65 m/s PAOLO Vmax: 2.05 cm2 Mitral Valve MV Decel. Time: 180.57 ms MV E Max Aamir.: 0.82 m/s Pulmonary Valve PV Peak Aamir.: 0.72 m/s PV Peak Gr.: 2.05 mmHg Tricuspid Valve TR Peak Aamir.: 2.80 m/s RAP Estimate: 15.00 mmHg TR Peak Gr.: 31.00 mmHg PA Pressure: 46.00 mmHg Left Ventricle Left ventricle is dilated. There is normal left ventricular wall thickness. Left ventricular systolic function is moderate to severely decreased. LVEF is 30-35%. This study is not technically sufficient to allow evaluation of the LV diastolic function. Right Ventricle Right ventricle is dilated. Atria Left atrium is severely dilated. Right atrium is moderately dilated. Aortic Valve Aortic valve leaflets are mildly thickened and calcified. No aortic regurgitation is present. There is no aortic valvular stenosis. Mitral Valve The mitral valve is normal in structure. Mild mitral annular calcification. Moderate mitral regurgitation. No evidence of mitral valve stenosis. Tricuspid Valve The tricuspid valve is normal in structure. Mild to moderate tricuspid regurgitation. Estimated PAP is 45mmHg. Pulmonic Valve The pulmonary valve is normal in structure. Mild pulmonic regurgitation. [facility] [address] [place] [address] 2 D/M-MODE ECHOCARDIOGRAM Name: GIBRANRUBI VENITA Room #: 360-P [facility] IN M.R.#: [id number] Admission: 12/09/19 Attend Phys: Christos Gibson, Discharge: Date of : 33 Report #: [id number] Great Vessels The aortic root is normal in size. The ascending aorta is normal in size. IVC is dilated and collapses <50% with inspiration. Pericardium There is no pericardial effusion. <Conclusion> Left ventricle is dilated. Left ventricular systolic function is moderate to severely decreased. Right ventricle is dilated. Left atrium is severely dilated. Aortic valve leaflets are mildly thickened and calcified. Moderate mitral regurgitation. Mild to moderate tricuspid regurgitation. Estimated PAP is 45mmHg. <ELECTRONICALLY SIGNED> By: Bethel Small MD 12/11/19 1141 1141 1141 Bethel Small MD /DOM
[2019-12-11 11:44] VITALS: BP 122/51
[2019-12-11] MEDS ORDERED: DEMADEX20 MG PO (12:45)
[2019-12-11 13:53] VITALS: BP 122/51
--- NOTE | 2019-12-11 14:00 | NUR ---
DISCHARGE NOTE: SW reviewed chart and spoke with nursing and attending physician. Pt second COVID-19 test came back negative. Pt is medically stable for discharge home today with HH services. SW spoke with pt's via phone to provide update and discuss discharge plan. SW discussed options for HH agencies. No preference voiced. SW confirmed pt's home address and phone number. SW faxed referral and discharge orders/summary to [facility] and notified liaison of new referral. Contact info for [facility] placed in pt's discharge summary. Pt's will provide transportation home. SW updated pt's nursw, who will contact pt's whe pt is ready for discharge. No additional SW needs identified at this time, but is available to assist should needs arise.
--- NOTE | 2019-12-11 14:46 | NUR ---
PT REFUSE REST SATURATION AND EXERCISE. EDUCATION REINFORCED CONTINUED TO REFUSE.
[2019-12-11 14:49] VITALS: BP 122/51
--- NOTE | 2019-12-11 15:26 | NUR ---
WENT THROUGH DISCHARGE INSTRUCTION AND EDUCATION WITH PATIENT. PT AWARE OF APPT WITH [facility]AR[facility] INSTRUCTOR. EDUCATED PT ON NEW MEDICATION. ALL BELONGINGS PACKED AND SENT DOWM WITH PT VIA WHEELCHAIR. PT PICKED HIM UP IN FRONT OF THE ER.
== END 2019-12-11 15:30 | disposition home health service (06) | DRG 682 ==
LOC: ER 12:22 → EROBS 14:18 → 3W 14:18
PROVIDERS: Hospitalist; Nurse Practitioner; Nurse Practitioner Family; ADMIT Internal Medicine
DX: N17.9 Acute kidney failure, unspecified (principal); I50.33 Acute on chronic diastolic (congestive) heart failure; I48.92 Unspecified atrial flutter; I48.21 Permanent atrial fibrillation; I13.0 Hypertensive heart and chronic kidney disease with heart failure and stage 1 through stage 4 chronic kidney disease, or unspecified chronic kidney disease; K21.9 Gastro-esophageal reflux disease without esophagitis; N18.9 Chronic kidney disease, unspecified; I25.10 Atherosclerotic heart disease of native coronary artery without angina pectoris; M19.90 Unspecified osteoarthritis, unspecified site; Z66 Do not resuscitate; R00.1 Bradycardia, unspecified; I73.00 Raynaud's syndrome without gangrene; E11.51 Type 2 diabetes mellitus with diabetic peripheral angiopathy without gangrene; E11.40 Type 2 diabetes mellitus with diabetic neuropathy, unspecified; E78.5 Hyperlipidemia, unspecified; E87.6 Hypokalemia; D50.0 Iron deficiency anemia secondary to blood loss (chronic); Z20.828 Contact with and (suspected) exposure to other viral communicable diseases; I27.20 Pulmonary hypertension, unspecified; Z95.1 Presence of aortocoronary bypass graft; Z79.01 Long term (current) use of anticoagulants; Z90.49 Acquired absence of other specified parts of digestive tract; Z98.41 Cataract extraction status, right eye; Z88.8 Allergy status to other drugs, medicaments and biological substances; Z91.041 Radiographic dye allergy status; Z87.891 Personal history of nicotine dependence
CPT/HCPCS: 10879